=== PATIENT | male | born 1955 | race Caucasian/White ===

== ENCOUNTER → 2017-02-23 | Outpatient (CLI) | payer BC ==
[~2017-02-23] MED LIST: LIDEX0.05% T; NAPROSYN500 MG PO; NORCO 325 MG-51 TAB PO; PARAFON FORTE500 MG PO; PREDNICOT20 MG PO
[2017-02-23 13:12] LABS: BASO # 0.1 10*3/uL (0.0-0.1); BASO % 0.7 % (0.0-1.0); EOS % 0.5 % (1.0-4.0); HEMATOCRIT 38.5 % (42.0-52.0); HEMOGLOBIN 13.4 g/dl (14.0-18.0); LYMPH # 1.3 10*3/uL (1.3-4.4); LYMPH % 16.7 % (27.0-41.0); MEAN CELL VOLUME 95.1 fl (80.0-94.0); MEAN CORPUSCULAR HGB 33.1 pg (27.0-31.0); MEAN CORPUSCULAR HGB CONC 34.8 g/dl (33.0-37.0); MEAN PLATELET VOLUME 9.5 fl (9.6-12.3); MONO # 0.6 10*3/uL (0.1-1.0); MONO % 7.4 % (3.0-9.0); NEUT # 5.7 10*3/uL (2.3-7.9); NEUT % 74.4 % (47.0-73.0); PLATELET COUNT AUTOMATED 277 10*3/uL (130-400); RED BLOOD COUNT 4.05 10*6/uL (4.50-5.90); RED CELL DISTRI WIDTH 12.8 % (0-14.5); WHITE BLOOD COUNT 7.7 10*3/uL (4.8-10.8)
[2017-02-23 13:42] LABS: ALBUMIN 4.1 gm/dl (3.1-4.5); ALKALINE PHOSPHATASE 73 U/L (45-117); BILIRUBIN, TOTAL 0.6 mg/dl (0.2-1.0); BUN 9 mg/dl (7-24); CARBON DIOXIDE 29 mmol/L (21-32); CHLORIDE 98 mmol/L (98-107); CHOLESTEROL 181 mg/dL (<200); EST GLOM FILT AFRICAN AMERICAN > 60 ml/min; FREE T4 0.91 ng/dl (0.76-1.46); GLUCOSE 129 mg/dL (65-99); HDL CHOLESTEROL 81 mg/dl (40-60); LDL CHOLESTEROL 81 mg/dL (9-159); POTASSIUM 3.9 mmol/L (3.5-5.1); SGOT/AST 21 IU/L (3-35); SGPT/ALT 22 U/L (12-78); SODIUM 139 mmol/L (136-145); TOTAL PROTEIN 7.9 gm/dL (6.4-8.2); TRIGLYCERIDES 96 mg/dl (<150); VLDL CHOLESTEROL 19 mg/dL (6-40)
[2017-02-23 13:47] LABS: THYROID STIM HORMONE (HS) 0.895 uIU/ml (0.358-4.75)
== END | disposition home or self-care (01) ==
LOC: LAB 11:48
PROVIDERS: Family Medicine
DX: I10 Essential (primary) hypertension (principal); E78.5 Hyperlipidemia, unspecified; E55.9 Vitamin D deficiency, unspecified

== ENCOUNTER → 2018-03-02 | Outpatient (CLI) | payer BC | END | disposition home or self-care (01) | LOC: RAD 11:38 | DX: R06.02 Shortness of breath (principal) ==

== ENCOUNTER 2019-12-05 10:13 | Emergency (ER) | payer BC ==
[~2019-12-05] VITALS: Ht 175.2 cm; Wt 74.8 kg
[2019-12-05] MEDS ORDERED: TAMIFLU 75MG CA75 MG PO (11:15)
== END 2019-12-05 11:30 | disposition home or self-care (01) ==
LOC: ED 10:13
DX: J02.9 Acute pharyngitis, unspecified (principal); R05 Cough; M79.10 Myalgia, unspecified site; R50.9 Fever, unspecified; I10 Essential (primary) hypertension; G20 Parkinson's disease

== ENCOUNTER 2020-07-09 10:07 | Emergency (ER) | payer BC ==
[~2020-07-09] VITALS: Ht 172.7 cm; Wt 70.3 kg
[~2020-07-09 10:07] MED LIST changes: +TAMIFLU 75MG CA75 MG PO
[2020-07-09] MEDS ORDERED: ROBAXIN-750750 MG PO (11:45)
== END 2020-07-09 11:55 | disposition home or self-care (01) ==
LOC: ED 10:07
DX: S46.911A Strain of unspecified muscle, fascia and tendon at shoulder and upper arm level, right arm, initial encounter (principal); M54.2 Cervicalgia; X58.XXXA Exposure to other specified factors, initial encounter; Y93.89 Activity, other specified; Y92.89 Other specified places as the place of occurrence of the external cause; Y99.8 Other external cause status

== ENCOUNTER 2022-01-23 10:29 | Inpatient (IN) | payer OTHER ==
[~2022-01-23] VITALS: Ht 175.3 cm; Wt 83.9 kg
[~2022-01-23 10:29] MED LIST changes: +ADVAIR INH; +AMLODIPINE BESY10 MG PO; +ASPIRIN81 M1 PO; +CLARITIN10 MG PO; +HYDR25T PO; +LISINOPRIL10 M1 PO; +MELOXICAM7.5 MG PO; +METOPROLOL TART50 M1 PO; +NEBULIZER; +ROBAXIN-750750 MG PO; +SINEMET 10-1001 EACH PO; +SUPER-D3+ SOFT1 EACH PO; +TOPROL XL50 M1 PO; +VENT7GM INH; +VITAMIN D3125 MC1 PO; +ZESTORETIC 10-1 EACH PO; +ZESTRIL10 MG PO
[2022-01-23 10:35] VITALS: BP 155/83
[2022-01-23 11:52] LABS: BASO % 0.2 % (0.0-1.0); EOS % 0.1 % (1.0-4.0); HEMATOCRIT 39.4 % (42.0-52.0); LYMPH # 0.9 10*3/uL (1.3-4.4); MEAN CELL VOLUME 92.1 fl (80.0-94.0); MEAN CORPUSCULAR HGB 31.5 pg (27.0-31.0); MEAN CORPUSCULAR HGB CONC 34.3 g/dl (33.0-37.0); MEAN PLATELET VOLUME 10.1 fl (9.6-12.3); MONO # 0.8 10*3/uL (0.1-1.0); MONO % 9.3 % (3.0-9.0); NEUT # 6.3 10*3/uL (2.3-7.9); PLATELET COUNT AUTOMATED 224 10*3/uL (130-400); RED BLOOD COUNT 4.28 10*6/uL (4.50-5.90); RED CELL DISTRI WIDTH 13.9 % (0-14.5)
[2022-01-23 12:16] LABS: ALKALINE PHOSPHATASE 113 U/L (45-117); BUN 23 mg/dl (7-24); CHLORIDE 106 mmol/L (98-107); CREATININE 0.92 mg/dL (0.70-1.30); LIPASE 88 U/L (73-393); SGOT/AST 23 IU/L (3-35); SGPT/ALT 49 U/L (12-78); SODIUM 141 mmol/L (136-145); TOTAL PROTEIN 7.6 gm/dL (6.4-8.2)
[2022-01-23 14:45] VITALS: BP 132/78
[2022-01-23 15:15] VITALS: BP 148/69
[2022-01-23] MEDS ORDERED: VENT7GM INH (15:49)
[2022-01-23] MEDS ORDERED: ADVAIR 250/501 EA INH (15:50)
[2022-01-23] MEDS ORDERED: MELOXICAM7.5 MG PO (16:39)
[2022-01-23 20:00] VITALS: BP 143/70
[2022-01-24] VITALS: BP 149/71
[2022-01-24 16:00] VITALS: BP 125/64
[2022-01-24] MEDS ORDERED: PREDNISONE10 MG PO (16:08)
[2022-01-24] MEDS ORDERED: CYCLOBENZAPRINE10 MG PO (16:09)
== END 2022-01-24 17:04 | disposition home or self-care (01) | DRG 552 ==
LOC: ED 10:29 → 4E 14:30 → EDHOLD 14:30 → 4E 14:51
PROVIDERS: Emergency Medicine; ADMIT Internal Medicine; ATTEND Internal Medicine
DX: M48.061 Spinal stenosis, lumbar region without neurogenic claudication (principal); I10 Essential (primary) hypertension; J44.9 Chronic obstructive pulmonary disease, unspecified; G20 Parkinson's disease; R26.2 Difficulty in walking, not elsewhere classified; Z79.82 Long term (current) use of aspirin; Z79.899 Other long term (current) drug therapy

== ENCOUNTER → 2022-03-12 | Outpatient (CLI) | payer MEDICARE ==
[~2022-03-12] MED LIST changes: +ADVAIR 250/501 EA INH; +CYCLOBENZAPRINE10 MG PO; +PREDNISONE10 MG PO
== END | disposition home or self-care (01) ==
LOC: RAD 12:41
PROVIDERS: ATTEND Internal Medicine
DX: J43.9 Emphysema, unspecified (principal)

== ENCOUNTER 2022-10-22 13:07 | Emergency (ER) | payer MEDICARE ==
[~2022-10-22] VITALS: Ht 172.7 cm; Wt 85.7 kg
[2022-10-22] MEDS ORDERED: CYCLOBENZAPRINE10 MG PO (16:27)
[2022-10-22] MEDS ORDERED: PREDNISONE50 MG PO (16:27)
== END 2022-10-22 16:31 | disposition home or self-care (01) ==
LOC: ED 13:07
DX: M54.42 Lumbago with sciatica, left side (principal); F10.90 Alcohol use, unspecified, uncomplicated; Z98.890 Other specified postprocedural states

== ENCOUNTER 2022-11-11 13:43 | Emergency (ER) | payer MEDICARE ==
[~2022-11-11] VITALS: Wt 86.2 kg
[~2022-11-11 13:43] MED LIST changes: +PREDNISONE50 MG PO
[2022-11-11 14:40] LABS: BASO % 0.2 % (0.0-1.0); LYMPH % 10.3 % (27.0-41.0); MEAN CELL VOLUME 94.2 fl (80.0-94.0); MEAN CORPUSCULAR HGB 31.4 pg (27.0-31.0); MEAN CORPUSCULAR HGB CONC 33.3 g/dl (33.0-37.0); MEAN PLATELET VOLUME 9.9 fl (9.6-12.3); MONO # 0.8 10*3/uL (0.1-1.0); MONO % 8.6 % (3.0-9.0); NEUT # 7.5 10*3/uL (2.3-7.9); NEUT % 80.6 % (47.0-73.0); PLATELET COUNT AUTOMATED 213 10*3/uL (130-400); RED BLOOD COUNT 4.46 10*6/uL (4.50-5.90); RED CELL DISTRI WIDTH 13.2 % (0-14.5); WHITE BLOOD COUNT 9.3 10*3/uL (4.8-10.8)
[2022-11-11 14:55] LABS: ALKALINE PHOSPHATASE 84 U/L (46-116); BUN 14 mg/dl (9-23); CHLORIDE 96 mmol/L (98-107); POTASSIUM 3.8 mmol/L (3.4-5.1); TOTAL PROTEIN 6.9 gm/dL (6.0-8.0)
[2022-11-11 14:59] LABS: SGPT/ALT < 7 U/L (10-49)
[2022-11-11] MEDS ORDERED: PROVENTIL HFA6.7 GM INH (15:32)
[2022-11-11] MEDS ORDERED: AMOX-CLAV 875-1 EACH PO (15:32)
[2022-11-11] MEDS ORDERED: PREDNISONE50 MG PO (15:32)
== END 2022-11-11 15:45 | disposition home or self-care (01) ==
LOC: ED 13:43
PROVIDERS: Student in an Organized Health Care Education/Training Program
DX: J01.90 Acute sinusitis, unspecified (principal); J18.9 Pneumonia, unspecified organism; Z98.890 Other specified postprocedural states; F10.90 Alcohol use, unspecified, uncomplicated

== ENCOUNTER 2022-12-05 09:51 | Emergency (ER) | payer MEDICARE ==
[~2022-12-05] VITALS: Ht 172.7 cm; Wt 86.2 kg
[~2022-12-05 09:51] MED LIST changes: +AMOX-CLAV 875-1 EACH PO; +PROVENTIL HFA6.7 GM INH
[2022-12-05 10:25] LABS: BASO % 0.2 % (0.0-1.0); EOS % 0.2 % (1.0-4.0); HEMATOCRIT 44.3 % (42.0-52.0); LYMPH # 0.9 10*3/uL (1.3-4.4); LYMPH % 7.5 % (27.0-41.0); MEAN CELL VOLUME 91.9 fl (80.0-94.0); MEAN CORPUSCULAR HGB CONC 34.8 g/dl (33.0-37.0); MEAN PLATELET VOLUME 10.3 fl (9.6-12.3); MONO # 0.9 10*3/uL (0.1-1.0); MONO % 6.8 % (3.0-9.0); NEUT # 10.5 10*3/uL (2.3-7.9); NEUT % 84.8 % (47.0-73.0); PLATELET COUNT AUTOMATED 272 10*3/uL (130-400); RED BLOOD COUNT 4.82 10*6/uL (4.50-5.90); RED CELL DISTRI WIDTH 13.6 % (0-14.5); WHITE BLOOD COUNT 12.4 10*3/uL (4.8-10.8)
[2022-12-05 10:42] LABS: ALKALINE PHOSPHATASE 110 U/L (46-116); BUN 14 mg/dl (9-23); CHLORIDE 96 mmol/L (98-107); POTASSIUM 3.8 mmol/L (3.4-5.1); SGPT/ALT < 7 U/L (10-49); TOTAL PROTEIN 7.1 gm/dL (6.0-8.0)
[2022-12-05 11:08] LABS: ACT PARTIAL THROMBO TIME 30.5 SECONDS (20.0-32.1); INTERNATIONAL NORM RATIO 1.1 (2.0-3.5)
[2022-12-05] MEDS ORDERED: VIBRAMYCIN100 MG PO (13:06)
== END 2022-12-05 13:12 | disposition home or self-care (01) ==
LOC: ED 09:51
PROVIDERS: Emergency Medicine
DX: J44.1 Chronic obstructive pulmonary disease with (acute) exacerbation (principal); Z79.899 Other long term (current) drug therapy

== ENCOUNTER → 2023-05-21 | Outpatient (CLI) | payer MEDICARE ==
[~2023-05-21] MED LIST changes: +CARBIDOPA-LEVO1 EAC7 PO; +GABAPENTIN100 M2 PO; +MONTELUKAST SOD10 MG PO; +ONE-DAILY MULT1 EAC1 PO; +PRAVASTATIN SOD80 MG PO; +SINGULAIR10 M1 PO; +VALSARTAN40 MG PO; +VIBRAMYCIN100 MG PO; +XARELTO20 M1 PO
== END | disposition home or self-care (01) ==
LOC: CARD 02:01
PROVIDERS: ATTEND Internal Medicine
DX: I48.91 Unspecified atrial fibrillation (principal); R94.31 Abnormal electrocardiogram [ECG] [EKG]

== ENCOUNTER 2023-10-29 17:18 | Emergency (ER) | payer MEDICARE ==
[~2023-10-29] VITALS: Ht 175.2 cm; Wt 76.2 kg
[~2023-10-29 17:18] MED LIST changes: +DEXAMETHASONE4 MG PO; +DILTIAZEM HCL120 M2 PO; +DIOVAN80 M1 PO; +VALSARTAN80 MG PO
[2023-10-29 18:43] LABS: BASO % 0.3 % (0.0-1.0); EOS % 0.1 % (1.0-4.0); HEMATOCRIT 40.8 % (42.0-52.0); LYMPH # 1.1 10*3/uL (1.3-4.4); MEAN CELL VOLUME 94.9 fl (80.0-94.0); MEAN CORPUSCULAR HGB 31.6 pg (27.0-31.0); MEAN CORPUSCULAR HGB CONC 33.3 g/dl (33.0-37.0); MONO % 7.2 % (3.0-9.0); NEUT # 11.5 10*3/uL (2.3-7.9); NEUT % 84.1 % (47.0-73.0); PLATELET COUNT AUTOMATED 219 10*3/uL (130-400); RED CELL DISTRI WIDTH 12.8 % (0-14.5); WHITE BLOOD COUNT 13.7 10*3/uL (4.8-10.8)
[2023-10-29 18:54] LABS: ACT PARTIAL THROMBO TIME 31.9 SECONDS (20.0-32.1)
[2023-10-29 19:05] LABS: ALKALINE PHOSPHATASE 111 U/L (46-116); BUN 15 mg/dl (9-23); CHLORIDE 102 mmol/L (98-107); POTASSIUM 3.3 mmol/L (3.4-5.1); SGPT/ALT < 7 U/L (5-49); TOTAL PROTEIN 6.7 gm/dL (6.0-8.0)
[2023-10-29] MEDS ORDERED: VIBRAMYCIN100 MG PO (20:29)
== END 2023-10-29 20:39 | disposition home or self-care (01) ==
LOC: ED 17:18
PROVIDERS: Physician Assistant Medical
DX: J18.9 Pneumonia, unspecified organism (principal); J44.9 Chronic obstructive pulmonary disease, unspecified; I10 Essential (primary) hypertension; I48.91 Unspecified atrial fibrillation; Z98.890 Other specified postprocedural states; Z20.822 Contact with and (suspected) exposure to COVID-19

== ENCOUNTER → 2023-12-16 | Outpatient (CLI) | payer MEDICARE ==
[~2023-12-16] MED LIST changes: +BARIUM SULFATE 98% 340 GM BOT PO ONE
== END | disposition home or self-care (01) ==
LOC: RAD/SH 01:11
PROVIDERS: ATTEND Internal Medicine
DX: R13.12 Dysphagia, oropharyngeal phase (principal); G30.9 Alzheimer's disease, unspecified

== ENCOUNTER → 2024-04-21 | Outpatient (CLI) | payer MEDICARE ==
[~2024-04-21] MED LIST changes: -BARIUM SULFATE 98% 340 GM BOT PO ONE
== END ==
LOC: US 04-19 14:30
PROVIDERS: ATTEND Internal Medicine
DX: M79.604 Pain in right leg (principal); M79.605 Pain in left leg

== ENCOUNTER → 2024-05-05 | Outpatient (CLI) | payer MEDICARE | END | disposition home or self-care (01) | LOC: LAB 09:07 | PROVIDERS: ATTEND Urology | DX: R97.20 Elevated prostate specific antigen [PSA] (principal) ==